=== PATIENT | female | born 1960 | race Caucasian/White ===

== ENCOUNTER 2018-08-28 07:56 | Emergency (ER) | payer MEDICAID ==
[~2018-08-28] VITALS: Ht 154.9 cm; Wt 102.3 kg
[~2018-08-28 07:56] MED LIST: HAL1; LITH600C2
[2018-08-28 07:57] VITALS: BP 132/67; PULSE 78; RESP 18; Ht 154.9 cm; Wt 102.3 kg
[2018-08-28] MEDS ORDERED: IBUPROFEN 200 MG TAB PO ONE (08:30)
[2018-08-28] MEDS ORDERED: ACETAMINOPHEN 325 MG TAB PO ONE (08:30)
--- NOTE | 2018-08-28 08:32 | ERD ---
ER Documentation Chief Complaint Chief Complaint left ankle/foot pain s/p trip on side walk yesterday HPI 58-year-old female, presents the emergency department, complaining of left ankle pain after a mechanical fall that occurred yesterday, according to the patient, she tripped over uneven pavement, causing a forced inversion of the left ankle. After the event, the patient was able to ambulate without difficulty. She is complaining of dull pain, constant, worsened by palpation or ambulation. No medications taken for pain. She denies distal weakness, numbness or tingling. ROS All systems reviewed and are negative except as per history of present illness. Medications Home Meds Active Scripts Front Wheel Walker* (Front Wheel Walker*) 1 Each Dme, EACH MC DIRECTED, #1 0 Refills Prov:JANELLE OLIVAREZ MD 08/28/18 Acetaminophen* (Tylenol*) 325 Mg Tablet, 2 TAB PO Q8 PRN for PAIN AND OR ELEVATED TEMP, #20 TAB Prov:JANELLE OLIVAREZ MD 08/28/18 Ibuprofen* (Motrin*) 400 Mg Tab, 400 MG PO Q8, #15 TAB Prov:JANELLE OLIVAREZ MD 08/28/18 Reported Medications Haloperidol* (Haldol*) 1 Mg Tab 02/23/10 [place] Carbonate* ([place] Carbonate*) 600 Mg Capsule 02/23/10 Allergies Allergies: Coded Allergies: No Known Drug Allergy (Verified Allergy, Unknown, 08/28/18) PMhx/Soc History of Surgery: No Anesthesia Reaction: No Hx Neurological Disorder: No Hx Respiratory Disorders: No Hx Cardiac Disorders: No Hx Psychiatric Problems: Yes (bipolar) Hx Miscellaneous Medical Probl: No Hx Alcohol Use: No Hx Substance Use: No Hx Tobacco Use: No Smoking Status: Never smoker FmHx Family History: diabetes, coronary disease Physical Exam Vitals Vital Signs Date Temp Pulse Resp B/P (MAP) Pulse Ox O2 O2 Flow FiO2 Time Delivery Rate 08/28/18 98.7 78 18 132/67 96 07:57 (88) Physical Exam Const: No acute distress Head: Atraumatic Eyes: Normal Conjunctiva ENT: Normal External Ears, Nose and Mouth. Neck: Full range of motion. No meningismus. Resp: Clear to auscultation bilaterally Cardio: Regular rate and rhythm, no murmurs Abd: Soft, non tender, non distended. Normal bowel sounds Skin: No petechiae or rashes Back: No midline or flank tenderness Ext: Left ankle: Lateral malleolar edema and ecchymosis, decreased range of motion due to pain. Distal neurovascular exam intact. Neur: Awake and alert Psych: Normal Mood and Affect Results 24 hrs Current Medications Medications Dose Sig/Kleber Start Time Status Last (Trade) Ordered Route PRN Stop Time Admin Dose Reason Admin Ibuprofen 400 mg ONCE ONCE 08/28/18 DC 08/28/18 (Motrin) PO 08:30 08/28/18 08:33 08:31 650 mg ONCE ONCE 08/28/18 DC 08/28/18 Acetaminophen PO 08:30 08/28/18 08:33 (Tylenol 08:31 Tab) DIAGNOSTIC IMAGING REPORT Patient: ORLANDO DAMON : 1960 Age: 58 Sex: F MR #: [id number] DOS: 08/28/18824 Ordering MD: JANELLE OLIVAREZ MD Location: [facility] Room/Bed: PROCEDURE: Left ankle series CLINICAL INDICATION: Trauma and pain TECHNIQUE: AP, lateral and oblique images left ankle were obtained COMPARISON: None FINDINGS: There is soft tissue swelling along the lateral left ankle. No acute fracture or dislocation. The bony mineralization is normal. No focal bony blastic or lytic lesions. Tiny posterior plantar calcaneal spur. IMPRESSION: 1. Soft tissue swelling along the lateral left ankle. 2. No acute fracture or dislocation. RPTAT:AAJJ Physician Andria Date Time Electronically viewed and signed by Physician Andria on 08/28/2018 08:51 BM/ CC: JANELLE OLIVAREZ MD [id number] Procedures/MDM Acute left ankle pain: no red flags. Differential diagnosis include but not limited to: Ankle sprain/strain, ligament injury, arthritis; low suspicion for fracture, dislocation, septic arthritis. Neurovascular exam grossly intact. no clinical findings suggestive of acute infectious process, no deformity, no rashes. Pertinent Data: X-rays: No fracture or dislocation Physical examination and clinical presentation consistent most likely with left ankle sprain. During the ED course the patient received treatment with Dinesh bandage. Results and clinical impression discussed with patient who agrees with management. The patient is stable to be treated outpatient and will be discharged home with recommendations for ice, rest and partial immobilization. NSAIDs 3 times daily for 5 days and close monitoring. The patient was instructed to follow up with the primary care provider in the next 48h. If symptoms persist, worsen or new symptoms develop, then patient should return to the ED immediately. Instructions explained and given to patient with acknowledgment and demonstrated understanding. Disclaimer: Inadvertent spelling and grammatical errors are likely due to EHR/dictation software use and do not reflect on the overall quality of patient care. Also, please note that the electronic time recorded on this note does not necessarily reflect the actual time of the patient encounter. Departure Diagnosis: Primary Impression: Fall with no significant injury Additional Impression: Left ankle sprain Condition: Stable Additional Instructions: Muchas reina por [facility] para meyer servicio. Esperamos que en meyer visita a la macho de emergencia meyer problema medico haya sido solucionado y que se sienta mucho mejor. Para estar seguros que meyer mejoria sigue en proceso, le pedimos el favor de hacer jasmeet mora de seguimiento medico con meyer doctor primario en los proximos 2-4 galdamez. Lleve con usted estos documentos y las medicinas recetadas. Si maksim sintomas empeoran, NO SE ESPERE, por favor regrese a macho de emergencia INMEDIATAMENTE. En bill que usted no tenga un mdico de atencin primaria: Llame al mdico o clnica comunitaria de referencia que aparece abajo radha las horas de consultorio para hacer jasmeet mora para que le vean. CLINICAS: [facility] [phone] [address] [facility] 010 [phone] [address] [place] [facility] [phone] [facility] [phone] [address] [facility] [phone] [address] [facility]. [phone] JANELLE MENEZES MD Aug 28, 2018 08:31
[2018-08-28] MEDS ORDERED: ACET325T33 PO (09:06)
[2018-08-28] MEDS ORDERED: IBUP-1561 PO (09:06)
[2018-08-28] MEDS ORDERED: WALK1EAC23 MC (09:07)
== END 2018-08-28 09:31 | disposition home or self-care (01) ==
LOC: FTE 07:56
DX: S93.402A Sprain of unspecified ligament of left ankle, initial encounter (principal); W01.0XXA Fall on same level from slipping, tripping and stumbling without subsequent striking against object, initial encounter; Y92.9 Unspecified place or not applicable
CPT/HCPCS: 73610; Z7502; Z7610

== ENCOUNTER 2018-10-15 12:37 | Emergency (ER) | payer MEDICAID ==
[~2018-10-15] VITALS: Ht 154.9 cm; Wt 104.4 kg
[~2018-10-15 12:37] MED LIST changes: +ACET325T33 PO; +IBUP-1561 PO; +WALK1EAC23 MC
[2018-10-15 12:44] VITALS: BP 141/76; PULSE 82; RESP 20; Ht 154.9 cm; Wt 104.4 kg
[2018-10-15] MEDS ORDERED: D-ME473S2 PO (14:52)
[2018-10-15] MEDS ORDERED: AZIT250T PO (14:52)
--- NOTE | 2018-10-15 14:55 | ERD ---
ER Documentation Chief Complaint Chief Complaint PRODUCTIVE COUGH [id number] HPI 58-year-old female presents with productive cough for last weeks. She denies fevers, chest pain, vomiting, abdominal pain. She is here with her adult son with similar symptoms. Denies asthma, pulmonary issues. She has a history of insulin dependent diabetes. ROS All systems reviewed and are negative except as per history of present illness. Medications Home Meds Active Scripts Dextromethorphan Hb-Promethazine Hcl* (Promethazine DM* Syrup) 473 Ml Syrup, 5 ML PO Q6 PRN for COUGH for 5 Days, ML Prov:DINORAH FULLER MD 10/15/18 Azithromycin* (Zithromax*) 250 Mg Tablet, 250 MG PO .ZPACK DIRECTED, #6 TAB TAKE 500 MG (2 TABS) THE FIRST DAY THEN 250 MG (1 TAB) DAYS 2-5 Prov:DINORAH FULLER MD 10/15/18 Front Wheel Walker* (Front Wheel Walker*) 1 Each Dme, EACH MC DIRECTED, #1 0 Refills Prov:JANELLE OLIVAREZ MD 08/28/18 Acetaminophen* (Tylenol*) 325 Mg Tablet, 2 TAB PO Q8 PRN for PAIN AND OR ELEVATED TEMP, #20 TAB Prov:JANELLE OLIVAREZ MD 08/28/18 Ibuprofen* (Motrin*) 400 Mg Tab, 400 MG PO Q8, #15 TAB Prov:JANELLE OLIVAREZ MD 08/28/18 Reported Medications Haloperidol* (Haldol*) 1 Mg Tab 02/23/10 [place] Carbonate* ([place] Carbonate*) 600 Mg Capsule 02/23/10 Allergies Allergies: Coded Allergies: No Known Drug Allergy (Verified Allergy, Unknown, 08/28/18) PMhx/Soc History of Surgery: No Anesthesia Reaction: No Hx Neurological Disorder: No Hx Respiratory Disorders: No Hx Cardiac Disorders: No Hx Psychiatric Problems: Yes (bipolar) Hx Miscellaneous Medical Probl: No Hx Alcohol Use: No Hx Substance Use: No Hx Tobacco Use: No FmHx Family History: No diabetes, No coronary disease, No other Physical Exam Vitals Vital Signs Date Temp Pulse Resp B/P (MAP) Pulse Ox O2 O2 Flow FiO2 Time Delivery Rate 10/15/18 98.6 82 20 141/76 98 12:44 (97) Physical Exam Const: No acute distress Head: Atraumatic Eyes: Normal Conjunctiva ENT: Normal External Ears, Nose and Mouth. TMs and oropharynx normal. Neck: Full range of motion. No meningismus. Resp: Clear to auscultation bilaterally. Coarse cough and rhonchi without rales, wheezing or retractions. Cardio: Regular rate and rhythm, no murmurs Abd: Soft, non tender, non distended. Normal bowel sounds Skin: No petechiae or rashes Back: No midline or flank tenderness Ext: No cyanosis, or edema Neur: Awake and alert Psych: Normal Mood and Affect Procedures/MDM Patient presents with worsening productive cough for last 2 weeks without signs of hypoxemia, respiratory distress, signs of pneumonia on clinical exam. We will treat empirically given duration worsening symptoms with Zithromax, promet hazine, primary care follow-up and return precautions. The patient was stable with no new complaints during the ER course. Clinically, there is no current evidence to suggest meningitis, sepsis, acute abdomen, pneumonia, stroke, acute coronary syndrome, pulmonary embolism, aortic dissection or any other emergent condition appearing to require further evaluation or hospitalization. Patient counseled regarding my diagnostic impression and care plan. Prior to discharge all questions answered. Pt agrees with treatment plan and understands strict return precautions. Pt is instructed to follow up with primary care provider within 24-48 hours. Precautionary instructions provided including instructions to return to the ER if not improving or for any worsening or changing symptoms or concerns. Departure Diagnosis: Primary Impression: Cough Condition: Stable Patient Instructions: Bronchitis, Antiobiotic Treatment (Adult) Referrals: DOCTOR,NOT ON STAFF (PCP) Additional Instructions: Recheck for new or worsening symptoms with primary care doctor. DINORAH FULLER MD Oct 15, 2018 14:55
== END 2018-10-15 15:36 | disposition home or self-care (01) ==
LOC: FTE 12:37
DX: R05 Cough (principal)
CPT/HCPCS: 99283

== ENCOUNTER 2018-11-06 14:33 | Emergency (ER) | payer MEDICAID ==
[~2018-11-06] VITALS: Ht 157.5 cm; Wt 100.0 kg
[~2018-11-06 14:33] MED LIST changes: +AZIT250T PO; +D-ME473S2 PO
[2018-11-06 14:36] VITALS: BP 126/61; PULSE 73; RESP 16; Ht 157.5 cm; Wt 100.0 kg
[2018-11-06] MEDS ORDERED: KETOROLAC 30 MG INJ IM STA (15:23)
--- NOTE | 2018-11-06 16:18 | ERD ---
ER Documentation Chief Complaint Chief Complaint BIB RA FOR EVAL OF GROUND LEVEL FALL LEFT ANKLE PAIN HPI 58-year-old female past medical history of hypertension, diabetes who presents status post ground-level fall with injury to left ankle. States she has ambulating when she does ankle gave out and landed on her face. Sustaining some abrasions to the bridge of nose and forehead. Denies LOC or preceding symptoms of dizziness or syncope. Has pain and swelling to left ankle and has had difficulty ambulating. She otherwise denies chest pain,shortness of breath, dys pnea, nausea vomiting, abdominal pain. At time of examination patient is in no acute distress alert and oriented x3 and neurovascularly intact. ROS All systems reviewed and are negative except as per history of present illness. Medications Home Meds Active Scripts Acetaminophen* (Tylophen*) 500 Mg Capsule, 1 CAP PO Q6H PRN for PAIN AND OR ELEVATED TEMP, #20 CAP Prov:JC BULLARD PA-C 11/06/18 Dextromethorphan Hb-Promethazine Hcl* (Promethazine DM* Syrup) 473 Ml Syrup, 5 ML PO Q6 PRN for COUGH for 5 Days, ML Prov:DINORAH FULLER MD 10/15/18 Azithromycin* (Zithromax*) 250 Mg Tablet, 250 MG PO .ZPACK DIRECTED, #6 TAB TAKE 500 MG (2 TABS) THE FIRST DAY THEN 250 MG (1 TAB) DAYS 2-5 Prov:DINORAH FULLER MD 10/15/18 Front Wheel Walker* (Front Wheel Walker*) 1 Each Dme, EACH MC DIRECTED, #1 0 Refills Prov:JANELLE OLIVAREZ MD 08/28/18 Acetaminophen* (Tylenol*) 325 Mg Tablet, 2 TAB PO Q8 PRN for PAIN AND OR ELEVATED TEMP, #20 TAB Prov:JANELLE OLIVAREZ MD 08/28/18 Ibuprofen* (Motrin*) 400 Mg Tab, 400 MG PO Q8, #15 TAB Prov:JANELLE OLIVAREZ MD 08/28/18 Reported Medications Haloperidol* (Haldol*) 1 Mg Tab 02/23/10 [place] Carbonate* ([place] Carbonate*) 600 Mg Capsule 02/23/10 Allergies Allergies: Coded Allergies: No Known Drug Allergy (Verified Allergy, Unknown, 08/28/18) PMhx/Soc Medical and Surgical Hx: pt denies Surgical Hx History of Surgery: No Anesthesia Reaction: No Hx Neurological Disorder: No Hx Respiratory Disorders: No Hx Cardiac Disorders: No Hx Psychiatric Problems: Yes (bipolar) Hx Miscellaneous Medical Probl: No Hx Alcohol Use: No Hx Substance Use: No Hx Tobacco Use: No Smoking Status: Never smoker Physical Exam Vitals Vital Signs Date Temp Pulse Resp B/P (MAP) Pulse Ox O2 O2 Flow FiO2 Time Delivery Rate 11/06/18 98.7 73 16 126/61 99 14:36 (82) Physical Exam I have reviewed the triage vital signs. Const: Well nourished, well developed, appears stated age, alert and oriented x 3 Eyes: PERRL, no conjunctival injection HENT: NCAT, Neck supple without meningismus, abrasions to forehead, small abrasion to bridge of nose, no hematoma, CV: RRR, Warm, well-perfused extremities RESP: CTAB, Unlabored respiratory effort GI: soft, non-tender, non-distended, no masses MSK: No gross deformities appreciated L ankle mild swelling, full ROM, SILT throughout, 5/5 strength Skin: Warm, dry. No rashes Neuro: grossly non focal Psych: Appropriate mood and affect. Results 24 hrs Current Medications Medications Dose Sig/Kleber Start Time Status Last (Trade) Ordered Route PRN Stop Time Admin Dose Reason Admin Ketorolac 30 mg ONCE STAT 11/06/18 DC 11/06/18 Tromethamine IM 15:23 15:30 (Toradol) 11/06/18 15:25 Procedures/MDM 58-year-old female who presents status post ground-level fall injury to left ankle. She has small abrasions to the forehead but otherwise is appropriate and I have no suspicion for intracranial pathology warranting emergent care. Reports no LOC, no subsequent headache or dizziness or any other red flag symptoms. No complaint of back pain and unremarkable physical exam other than noted findings. X-ray of left ankle without acute fracture with moderate soft tissue swelling at the lateral aspect of the left ankle. Patient is able to ambulate late greater than 4 steps with some discomfort but otherwise stable. She does not have any other symptoms that warrant emergent evaluation at this time. Advised her to follow-up with her PMD for continued care. Plan: Pain management, PMD follow-up Advised that she develops concerning neurological symptoms or other symptoms such as nausea vomiting or persistent headache or dizziness to return to emergency room. DISPOSITION PLAN: We discussed follow up with the patient's primary care doctor within 24 to 48 hours. Patient counseled regarding my diagnostic impression and care plan. Prior to discharge all questions answered. Pt agrees with treatment plan and understands strict return precautions. Precautionary instructions provided including instructions to return to the ER if not improving or for any worsening or changing symptoms or concerns. Departure Condition: Stable Patient Instructions: Owen Paz GETHO PA-C Nov 06, 2018 16:18
[2018-11-06] MEDS ORDERED: ACET500C5 PO (16:35)
== END 2018-11-06 16:44 | disposition home or self-care (01) ==
LOC: FTE 14:33
DX: S99.912A Unspecified injury of left ankle, initial encounter (principal); I10 Essential (primary) hypertension; E11.9 Type 2 diabetes mellitus without complications; W18.39XA Other fall on same level, initial encounter; Y92.9 Unspecified place or not applicable
CPT/HCPCS: 73610; 96372; J1885; Z7502

== ENCOUNTER 2018-12-18 10:37 | Emergency (ER) | payer MEDICAID ==
[~2018-12-18] VITALS: Wt 86.0 kg
[~2018-12-18 10:37] MED LIST changes: +ACET500C5 PO
[2018-12-18 10:39] VITALS: BP 138/78; PULSE 78; RESP 18
--- NOTE | 2018-12-18 11:03 | ERD ---
ER Documentation Chief Complaint Chief Complaint LEFT ANKLE PAIN AFTER FALL 1 MONTH AGO HPI Patient is a 58-year-old female with past medical history of DM type II, presents the ER for concerns of left ankle pain x1 month after a fall injury. Patient was seen here when she injured her ankle on x-ray images were obtained which were negative for fracture dislocation. Patient states she continues to have pain with ambulation. Patient is able to ambulate. Patient has no fevers or chills. Patient denies any new falls or trauma. Patient states she does not like taking pain medication given that she has kidney and liver problems. She is requesting Dinesh bandage. ROS All systems reviewed and are negative except as per history of present illness. Medications Home Meds Active Scripts Acetaminophen* (Tylophen*) 500 Mg Capsule, 1 CAP PO Q6H PRN for PAIN AND OR ELEVATED TEMP, #20 CAP Prov:JC BULLARD PA-C 11/06/18 Dextromethorphan Hb-Promethazine Hcl* (Promethazine DM* Syrup) 473 Ml Syrup, 5 ML PO Q6 PRN for COUGH for 5 Days, ML Prov:DINORAH FULLER MD 10/15/18 Azithromycin* (Zithromax*) 250 Mg Tablet, 250 MG PO .ZPACK DIRECTED, #6 TAB TAKE 500 MG (2 TABS) THE FIRST DAY THEN 250 MG (1 TAB) DAYS 2-5 Prov:DINORAH FULLER MD 10/15/18 Front Wheel Walker* (Front Wheel Walker*) 1 Each Dme, EACH MC DIRECTED, #1 0 Refills Prov:JANELLE OLIVAREZ MD 08/28/18 Acetaminophen* (Tylenol*) 325 Mg Tablet, 2 TAB PO Q8 PRN for PAIN AND OR E LEVATED TEMP, #20 TAB Prov:JANELLE OLIVAREZ MD 08/28/18 Ibuprofen* (Motrin*) 400 Mg Tab, 400 MG PO Q8, #15 TAB Prov:JANELLE OLIVAREZ MD 08/28/18 Reported Medications Haloperidol* (Haldol*) 1 Mg Tab 02/23/10 [place] Carbonate* ([place] Carbonate*) 600 Mg Capsule 02/23/10 Allergies Allergies: Coded Allergies: No Known Drug Allergy (Verified Allergy, Unknown, 08/28/18) PMhx/Soc History of Surgery: No Anesthesia Reaction: No Hx Neurological Disorder: No Hx Respiratory Disorders: No Hx Cardiac Disorders: No Hx Psychiatric Problems: Yes (bipolar) Hx Miscellaneous Medical Probl: Yes Hx Alcohol Use: No Hx Substance Use: No Hx Tobacco Use: No FmHx Family History: diabetes Physical Exam Vitals Vital Signs Date Temp Pulse Resp B/P (MAP) Pulse Ox O2 O2 Flow FiO2 Time Delivery Rate 12/18/18 98.1 78 18 138/78 99 10:39 (98) Physical Exam GENERAL: Obese female. Appears in no acute distress. HEAD: Normocephalic, atraumatic. EYES: Pupils are equally reactive bilaterally. EOMs grossly intact. No conjunctival erythema. NECK: Supple. No meningismus. Normal range of motion of the neck. LUNG: Clear to auscultation bilaterally. No rhonchi, wheezing, rales or coarse breath sounds. HEART: Regular rate and rhythm. No murmurs, rubs or gallops. EXTREMITIES: Equal pulses bilaterally. No peripheral clubbing, cyanosis or edema. No unilateral leg swelling. NEUROLOGIC: Alert and oriented. Moving all four extremities without any difficulty. Normal speech. Steady gait. SKIN: Normal color. Warm and dry. No rashes or lesions. LLE: No deformity, erythema, ecchymosis or swelling. Skin intact. Normal range of motion of ankles. Tender to palpation over the lateral ankle. Nontender palpation of the fifth metatarsal, midfoot, medial ankle, proximal tibia/fibula. Sensation intact to light touch. Neurovascularly intact. (Able to plantarflex, dorsiflex, roberto foot, invert foot, raise big toe.) 2+ DP and DT pulses. Procedures/MDM MEDICAL DECISION MAKING: This is a 58-year-old female who presents the ER for concerns of ankle pain x1 month. Patient fell 1 month ago. Patient denies any new recent falls. She was seen at the time of her fall injury and x-ray images were obtained. X-ray imaging showed no radiographic evidence of acute osseous abnormality. Moderate to severe lateral soft tissue swelling of the ankle noted. Patient states she does not like taking pain medications however she would like an Dinesh wrap. Patient was provided with Dinesh wrap. Patient was advised to follow-up with health education specialist for further management of her ongoing ankle pain. Unable to rule any ligament or tendon injuries at this time. Low suspicion for septic joint. Low suspicion for DVT. Patient was nontoxic, [id number] prior to discharge. DISCHARGE: At this time, patient is stable for discharge and outpatient management. RICE therapy and ROM exercises were advised to avoid stiffness. I have instructed the patient to follow-up with his/her primary care physician in 1-2 days. I have discussed with the patient the possibility of needing to see an health education specialist for further workup and imaging if the pain persists. I have instructed the patient to promptly return to the ER for any new or worsening symptoms including increased pain, swelling, redness, warmth or fever. The patient and/or family expressed understanding of and agreement with this plan. All questions were answered. Home care instructions were provided. Disclaimer: Inadvertent spelling and grammatical errors are likely due to EHR/dictation software use and do not reflect on the overall quality of patient care. Also, please note that the electronic time recorded on this note does not necessarily reflect the actual time of the patient encounter. Departure Diagnosis: Primary Impression: Ankle pain Chronicity: acute Laterality: left Qualified Codes: M25.572 - Pain in left ankle and joints of left foot Condition: Fair Patient Instructions: What Are Ankle Sprains? Referrals: [facility] YOU HAVE RECEIVED A MEDICAL SCREENING EXAM AND THE RESULTS INDICATE THAT YOU DO NOT HAVE A CONDITION THAT REQUIRES URGENT TREATMENT IN THE EMERGENCY DEPARTMENT. FURTHER EVALUATION AND TREATMENT OF YOUR CONDITION CAN WAIT UNTIL YOU ARE SEEN IN YOUR DOCTORS OFFICE WITHIN THE NEXT 1-2 DAYS. IT IS YOUR RESPONSIBILITY TO MAKE AN APPOINTMENT FOR FOLOW-UP CARE. IF YOU HAVE A PRIMARY DOCTOR --you should call your primary doctor and schedule an appointment IF YOU DO NOT HAVE A PRIMARY DOCTOR YOU CAN CALL OUR PHYSICIAN REFERRAL HOTLINE AT IF YOU CAN NOT AFFORD TO SEE A PHYSICIAN YOU CAN CHOSE FROM THE FOLLOWING [facility] [address] [facility] [address] [facility] [address] [facility] [address] [facility] [address] [facility] [address] [facility]. [facility] YOU HAVE RECEIVED A MEDICAL SCREENING EXAM AND THE RESULTS INDICATE THAT YOU DO NOT HAVE A CONDITION THAT REQUIRES URGENT TREATMENT IN THE EMERGENCY DEPARTMENT. FURTHER EVALUATION AND TREATMENT OF YOUR CONDITION CAN WAIT UNTIL YOU ARE SEEN IN YOUR DOCTORS OFFICE WITHIN THE NEXT 1-2 DAYS. IT IS YOUR RESPONSIBILITY TO MAKE AN APPOINTMENT FOR FOLOW-UP CARE. IF YOU HAVE A PRIMARY DOCTOR --you should call your primary doctor and schedule and appointment IF YOU DO NOT HAVE A PRIMARY DOCTOR YOU CAN CALL OUR PHYSICIAN REFERRAL HOTLINE AT . IF YOU CAN NOT AFFORD TO SEE A PHYSICIAN YOU CAN CHOSE FROM THE FOLLOWING [facility]: [facility] [address] [place] [address] [facility] [address] [place] [address] [facility] [address] [place] [address] Additional Instructions: Follow-up with your doctor for an MRI and outpatient basis. Unable to rule any ligament or tendon injuries. Use Dinesh wrap when ambulating. Call your primary care doctor TOMORROW for an appointment during the next 1-2 days.See the doctor sooner or return here if your condition worsens before your appointment time. PAUL FALL PA-C December 18, 2018 11:03
== END 2018-12-18 11:50 | disposition home or self-care (01) ==
LOC: FTE 10:37
DX: M25.572 Pain in left ankle and joints of left foot (principal); E11.9 Type 2 diabetes mellitus without complications
CPT/HCPCS: 99282